=== PATIENT | male | born 1970 | race Caucasian/White ===

== ENCOUNTER 2023-12-23 10:29 | Observation (INO) ==
--- NOTE | 2023-12-04 15:51 | PAT Medication Instructions ---
Medication Instructions Date of Service December 04, 2023 Home Medications Medication Instructions Recorded Wheeled Walker #1 ea 11/19/23 walker #1 ea 11/23/23 losartan 25 mg tablet 25 mg PO QPM #90 tabs 12/04/23 aspirin 81 mg tablet,delayed release 81 mg PO QPM finasteride 5 mg tablet 5 mg PO QPM losartan 25 mg tablet 25 mg PO QPM meloxicam 7.5 mg tablet 7.5 mg PO QPM metoprolol succinate 25 mg tablet,extended release 24 hr (Toprol XL) 25 mg PO QPM nitroglycerin 0.4 mg sublingual tablet 0.4 mg sublingual Q5M PRN rosuvastatin 40 mg tablet 40 mg PO QPM sildenafil 50 mg tablet 25 mg PO PRN tamsulosin 0.4 mg capsule (Flomax) 0.4 mg PO QPM Continue as directed nitroglycerin 0.4 mg sublingual tablet 0.4 mg sublingual Q5M PRN(if needed) ASK your surgeon for instructions meloxicam 7.5 mg tablet 7.5 mg PO QPM ASK your prescriber and surgeon aspirin 81 mg tablet,delayed release 81 mg PO QPM DO NOT take the morning of surgery sildenafil 50 mg tablet 25 mg PO PRN Take evening before surgery finasteride 5 mg tablet 5 mg PO QPM losartan 25 mg tablet 25 mg PO QPM metoprolol succinate 25 mg tablet,extended release 24 hr (Toprol XL) 25 mg PO QPM rosuvastatin 40 mg tablet 40 mg PO QPM tamsulosin 0.4 mg capsule (Flomax) 0.4 mg PO QPM Other Notes NOTHING TO EAT OR DRINK AFTER MIDNIGHT. If you have any questions please call us at [phone] or [phone] or [phone] or [phone]
--- NOTE | 2023-12-11 11:37 | Anesthesiology Consultation ---
Date of Service December 11, 2023 Assessment & Plan (1) Encounter for pre-operative examination: - Infectious disease screening: Per assessment on 12/11/23- No known recent infectious disease contacts or current infectious disease symptoms. - Cardiology visit (09/01/23): "CAD s/p RCA STEMI and PCI: No further angina but has had atypical chest pain lasting only 5 to 10 seconds. Otherwise able to remain quite active without exertional symptoms. Ischemic evaluation not necessary at this time. Echo ordered. Has not been taking aspirin. Recommend aspirin 81 mg once daily, indefinitely. Rationale for this discussed with him. Well beta blocked. Optimize blood pressure control. High intensity statin therapy recommended.. Recommended against meloxicam given increased NH risk. He does not believe meloxicam offers him any benefit and will consider discontinuing.. Blood pressure has been elevated. Start losartan 25 mg once daily. Low-sodium diet. Monitor renal function and electrolytes.. LDL is severely elevated. Goal LDL <70. Reports elevated transaminase levels in the past on atorvastatin 80 mg and therefore has not been on statin therapy for years. Agreeable to start rosuvastatin 20 mg daily which can be further titrated if necessary. Transaminase levels in 1 month. Mediterranean type diet. Exercise as able.. Atypical chest pain: Completely different than prior angina per patient report and only occurred at rest for a few seconds despite working 8 hours on his feet throughout the day without exertional symptoms. Ischemic evaluation not necessary at this time. Has known residual severe D2 CAD. Continue medical management.. Disposition: Follow-up in 6 months or sooner for questions or concerns." > Echo done 09/2023. Denies CP/ESCOBEDO at subsequent PAT visit 12/11/23. - PCP visit (11/24/23): "his ekg was done and no changes.. his cxr was ordered.. he is not having any chest pain or sob. no lightheadedness or dizziness. he was to see cardiology and had his echo done. he was to see ortho and is having his right knee replacement on 12/22. he is going to pat for his lab work." - PCP addendum (12/16/23): "i reviewed pt's ekg which did not show any changes, his cxr was clear and his lab work was stable. he is clear for his surgery" Chart Review Chart Review: Acceptable Risk for Surgery and Patient seen in Pre Admission Testing Teaching & Discussion Pre-Anesthesia Teaching/Discussion Notes: Instructed NPO after midnight before surgery,except medications with 15 cc of water. Medication instructions provided according to the PAT guidelines. History Surgery Operation Date: 12/23/23 12:30 Proposed Procedures p Right Total Knee Arthroplasty - Cruz Crockett MD Height/Weight Height: 6 ft 1 in Weight: 100.1 kg Allergies Allergy/AdvReac Type Severity Reaction Status Date / Time No Known Drug Allergies Allergy Verified 12/04/23 09:33 Medications Home Medications Medication Instructions Recorded Confirmed Last Taken Wheeled Walker #1 ea 11/19/23 11/24/23 Unknown walker #1 ea 11/23/23 11/24/23 Unknown aspirin 81 mg tablet,delayed 81 mg PO QPM 12/04/23 12/04/23 Unknown release finasteride 5 mg tablet 5 mg PO QPM 12/04/23 12/04/23 Unknown losartan 25 mg tablet 25 mg PO QPM #90 tabs 12/04/23 Unknown meloxicam 7.5 mg tablet 7.5 mg PO QPM 12/04/23 12/04/23 Unknown metoprolol succinate 25 mg 25 mg PO QPM 12/04/23 12/04/23 Unknown tablet,extended release 24 hr (Toprol XL) nitroglycerin 0.4 mg sublingual 0.4 mg sublingual Q5M PRN Chest 12/04/23 12/04/23 Unknown tablet Pain rosuvastatin 40 mg tablet 40 mg PO QPM 12/04/23 12/04/23 Unknown sildenafil 50 mg tablet 25 mg PO PRN PRN Sexual Activity 12/04/23 12/04/23 Unknown tamsulosin 0.4 mg capsule (Flomax) 0.4 mg PO QPM 12/04/23 12/04/23 Unknown Past Medical History Medical History BPH w urinary obs/LUTS CAD (coronary artery disease) 2014- stent x1 HTN (hypertension) Hx of myocardial infarction 2014- stent x1 Follows [facility] [place] Cardio/Dr. Monique Hyperlipidemia Lumbar degenerative disc disease Osteoarthritis of knees, bilateral Exercise / Class Metabolic Activity II 4-5 Yardwork/Stairs/Walk up hill Past Family History Family History Mother Heart disease Myocardial infarction Grandfather (Maternal) Myocardial infarction Uncle Myocardial infarction (maternal) Denies family history of Prostate cancer Breast cancer Colorectal cancer Past Surgical History Surgical History H/O radiofrequency ablation (RFA) of nerve of lumbar spine History of appendectomy Hx of arthroscopy of right knee Hx of cardiac catheterization 2014 > stent x1 Hx of inguinal hernia repair Hx of umbilical hernia repair x2 Hx of wisdom tooth extraction PONV (postoperative nausea and vomiting) S/P coronary artery stent placement 2014 > stent x1 Past Anesthesia History No Hx of Anesthesia Complications and No Family Hx of Anesthesia Complications History of PONV No Hx of Motion Sickness and History of PONV Social History Smoking Status: Never smoker Do You Dip or Chew Tobacco: No Hx Alcohol Use: Yes Alcohol type: hard liquor alcohol intake frequency: holidays/special occasions only Hx Substance Use: No substance use type: does not use Review of Systems Patient denies chest pain, shortness of breath, dyspnea on exertion, fever, chills, cough, wheezing, palpitations. Physical Exam Vital Signs BP 126/82 P 75 TEMP 97.9 SP02 97%RA RESP 18 Physical Full cervical extension range of motion. Full TMJ range of motion. TMD 2.5 finger breaths (small chin) Mallampati Score II Dentition: intact Lungs: clear throughout to auscultation Cardiac: regular rate and rhythm, no murmurs noted Spine: normal Carotid arteries: negative bruit Extremities: no LE edema Lab Results Anesthesia Preop Results Results Anesthesia Widget: WBC 5.75 K/ul (4.8-10.8) 12/11/23 Hgb 14.9 g/dl (14.0-18.0) 12/11/23 Hct 44.6 % (42.0-52.0) 12/11/23 Plt 230 K/uL (130-400) 12/11/23 Na 142 mmol/L (136-145) 12/11/23 K 3.9 mmol/L (3.5-5.1) 12/11/23 Cl 108 mmol/L (98-107) H 12/11/23 CO2 26 mmol/L (21-32) 12/11/23 BUN 22 mg/dl (6-23) 12/11/23 Creat 1.00 mg/dl (0.6-1.4) 12/11/23 Glucose Level 121 mg/dl (70-99(Fasting)) H 12/11/23 PT 10.5 Seconds (9.0-12.0) 12/11/23 PTT 26 Seconds (21-31) 12/11/23 INR 1.0 (0.9-1.1) 12/11/23 Blood Type A Positive 12/11/23 Antibody Screen NEGATIVE 12/11/23 Testing Electrocardiogram Date: 11/24/23 SR at 71bpm. Probable inferior NH, of indeterminate age. "No change" per confirming provider ECG review. Echo done 09/25/23. Chest X-Ray Date: 12/11/23 FINDINGS: Lung volumes are normal. There is no consolidation. 5 mm round density within the right midlung represents a calcified nodule which is benign. There is no pneumothorax or pleural effusion. Cardiac size is normal. Mediastinal contours are normal. There is no evidence for pulmonary edema. IMPRESSION: No acute cardiopulmonary findings. Echocardiogram Date: 09/25/23 EF 55-60%. Mild inferolateral wall HK. Moderate cLVH. Mild MR. RVSP 22mmhg. No significant diastolic dysfunction. Stress Test Date: 04/21/19 Type: nuclear Exercise stress nuclear cardiac stress test negative for ischemia. 96% MPHR. Small area of mild intensity tracer uptake of the bassal inferior wall suggestive of prior infarct. There is attenuation artifact on rest imagines. LVEF 55%.
--- NOTE | 2023-12-18 07:36 | History & Physical Report ---
Date of Service December 18, 2023 Assessment & Plan (1) Bilateral primary osteoarthritis of knee: 53-year-old gentleman with underlying cardiac disease status post a stent placement with advanced bilateral knee DJD. Right knee is bothering more than the left. He is failed conservative treatment. He like to proceed with right knee replacement. Plan: We are going to proceed with right total knee replacement. The risk and benefit of this procedure explained to the patient he understands. At his young age this may need to be revised in the future. He has been seen by cardiology and cleared for surgery. Will plan on using aspirin for DVT prophylaxis. He is hoping to be discharged to home with some home health postop. (2) CAD (coronary artery disease): (3) Hyperlipidemia: (4) HTN (hypertension): History of Present Illness Chief Complaint: . Bilateral knee pain and discomfort right side greater than the left. Primary Care Provider: Wale Beltrán DO . 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 He has a long history of bilateral knee pain discomfort is gradually gotten worse over time. He was initially treated at [facility] with multiple injections which would become less successful over time. For some reason they would never operate on his knees. He then presented to Dr. Paniagua who referred him here for definitive treatment. Both knees bother him but the right knee hurts more than the left. He takes medicine with minimal relief. He would like to proceed with knee replacement. Allergies Allergy/AdvReac Type Severity Reaction Status Date / Time No Known Drug Allergies Allergy Verified 12/04/23 09:33 Home Medications Medication Instructions Recorded Confirmed Type Wheeled Walker #1 ea 11/19/23 11/24/23 Rx walker #1 ea 11/23/23 11/24/23 Rx aspirin 81 mg tablet,delayed 81 mg PO QPM 12/04/23 12/04/23 History release finasteride 5 mg tablet 5 mg PO QPM 12/04/23 12/04/23 History losartan 25 mg tablet 25 mg PO QPM #90 tabs 12/04/23 Rx meloxicam 7.5 mg tablet 7.5 mg PO QPM 12/04/23 12/04/23 History metoprolol succinate 25 mg 25 mg PO QPM 12/04/23 12/04/23 History tablet,extended release 24 hr (Toprol XL) nitroglycerin 0.4 mg sublingual 0.4 mg sublingual Q5M PRN Chest 12/04/23 12/04/23 History tablet Pain rosuvastatin 40 mg tablet 40 mg PO QPM 12/04/23 12/04/23 History sildenafil 50 mg tablet 25 mg PO PRN PRN Sexual Activity 12/04/23 12/04/23 History tamsulosin 0.4 mg capsule (Flomax) 0.4 mg PO QPM 12/04/23 12/04/23 History Past Med/Surg History Problem List (Updated 12/18/23 @ 07:34 by Cruz Crockett MD) Bilateral primary osteoarthritis of knee Encounter for pre-operative examination Effusion, right knee Erectile dysfunction (Chronic) Elevated PSA (Acute) Claudication of both lower extremities Lumbar degenerative disc disease Medical History Lumbar degenerative disc disease HTN (hypertension) Hyperlipidemia Hx of myocardial infarction 2015- stent x1 [place] [facility] [place]. Monique CAD (coronary artery disease) 2015- stent x1 BPH w urinary obs/LUTS Osteoarthritis of knees, bilateral Surgical History PONV (postoperative nausea and vomiting) Hx of cardiac catheterization 2014 > stent x1 Hx of wisdom tooth extraction Hx of inguinal hernia repair Hx of umbilical hernia repair x2 S/P coronary artery stent placement 2015 > stent x1 H/O radiofrequency ablation (RFA) of nerve of lumbar spine Hx of arthroscopy of right knee History of appendectomy Family History Mother Heart disease Myocardial infarction Grandfather (Maternal) Myocardial infarction Uncle Myocardial infarction (maternal) Denies family history of Prostate cancer Breast cancer Colorectal cancer Social History Smoking Status: Never smoker Age Started Using Tobacco: 18; Second Hand Exposure: No; Do You Dip or Chew Tobacco: No; Hx Alcohol Use: Yes Alcohol type: hard liquor Hx Substance Use: No Preferred Language: Vietnamese Communication Ability: Effective Globe Cleaner Required: No Beliefs That Will Affect Care: None marital status: Current Living Situation: Spouse current occupational status: employed current occupation: [employer] Feels Safe at Home: Yes Childhood Exposure to Second-Hand Smoke: No caffeine: Yes (coffee, soda, tea) Dental Care, Regularly: No Physical Activity Frequency: Does not Exercise Seatbelt Use: always Sunscreen Use: No Assistive Devices: Glasses Review of Systems All systems reviewed & are unremarkable except as noted in HPI & below. Physical Exam . Physical examination reveals a pleasant relatively healthy looking middle-aged male. Examination of both [id number] patient ambulates independently. He is got varus alignment of both knees. Examination of the right knee reveals varus alignment. Small to moderate-sized knee effusion. Range of motion 5-1 20. No instability. No pain with hip motion. Examination left knee reveals slight varus alignment. Small knee effusion. Range of motion 5-1 25. No instability. Constitutional WD/WN, vitals as above Respiratory normal respiratory effort, lungs clear to auscultation Cardiovascular RRR, no murmur, no edema Gastrointestinal (Abdomen) normal bowel sounds, soft, nontender, no hepatosplenomegaly Results & Data Results & Data Laboratory Results . Diagnostic Findings . X-rays of the right knee reviewed. Shows advanced right knee DJD. Is got complete loss of his medial joint space. Got subchondral sclerosis. He is got similar but less severe disease on the left knee. PG Care Time/CCT Total # of Minutes Spent Total Time Spent with Patient: Total time spent is greater than 50% in coordination of care (as documented) at patient's floor/unit and/or counseling patient: Coding Level of Care Code None Diagnoses Bilateral primary osteoarthritis of knee M17.0 CAD (coronary artery disease) I25.10 Hyperlipidemia E78.5 HTN (hypertension) I10
[~2023-12-23 10:29] MED LIST: BUPIVACAINE 0.5 % 5 MG/1 ML PF 10ML VIAL ONE; ROPIVACAINE 0.5% 5 MG/ML 30 ML VIAL ONE
--- NOTE | 2023-12-23 10:42 | History & Physical Bridge Note ---
Date of Service December 23, 2023 History & Physical Bridge Note I have examined the patient, reviewed the History & Physical and in the interval since the performance of the History & Physical I have noted the following changes of clinical significance: no changes noted
[2023-12-23] MEDS ORDERED: ATROPINE SULFATE 0.1 MG/ML 10ML SYR IV PRN (11:11)
[2023-12-23] MEDS ORDERED: HYDROmorphone INJ 1 MG/ML SYRINGE IV PRN (11:11)
[2023-12-23] MEDS ORDERED: fentaNYL citrate PF 100 MCG/2 ML VIAL IV PRN (11:11)
[2023-12-23] MEDS ORDERED: ePHEDrine sulfate 50 MG/ML AMP IV PRN (11:11)
[2023-12-23] MEDS ORDERED: ONDANSETRON INJ 2 MG/ML 2 ML VIAL IV PRN ×2 (11:11→15:41)
[2023-12-23] MEDS: ACETAMINOPHEN 500 MG TAB PO SCH ×2 (11:19→20:21)
[2023-12-23] MEDS: dexAMETHasone**PF** 10 MG/ML VIAL IV SCH (11:19)
[2023-12-23] MEDS: FAMOTIDINE 20 MG TAB PO SCH (11:20)
[2023-12-23] MEDS: CeleBREX 200 MG CAP PO SCH (11:20)
[2023-12-23] MEDS: LR 500ML BOLUS, THEN 15ML/HR IV SCH (11:21)
[2023-12-23] MEDS: LR 60ML/HR IV SCH (11:21)
[2023-12-23] MEDS: METOCLOPRAMIDE HCL 10 MG TABLET PO SCH (11:21)
[2023-12-23] MEDS ORDERED: PROPOFOL IV EMULSION 10 MG/ML 20 ML VIAL IV ONE (11:39)
[2023-12-23] MEDS ORDERED: MIDAZOLAM HCL 1 MG/ML 2ML VIAL ONE (11:39)
[2023-12-23] MEDS: ceFAZolin 2000MG 2,000 MG/15 ML SYR IV SCH ×2 (13:06→20:25)
[2023-12-23] MEDS: ROPIV 0.5% 246mg, Ketorolac 30mg, EPINEPHrine 0.5mg in NSS INFIL SCH (13:40)
[2023-12-23] MEDS: ORTHO JOINT ANESTHETIC ONE (13:40)
[2023-12-23] MEDS: TRANEXAMIC ACID 1,000 MG **IV Intra-op IV SCH (14:01)
--- NOTE | 2023-12-23 14:56 | Operative Report ---
PG Post Operative Report Pre & Post Diagnosis Operation Date: 12/23/23 12:30 Pre-Op Diagnosis: Right Knee Osteoarthritis Post-Op Diagnosis: Right Knee Osteoarthritis I identified the patient and participated in the time-out.: Yes Procedure Operation Date: 12/23/23 12:30 Actual Procedures p Right Total Knee Arthroplasty(Right) - Cruz Crockett MD Surgeon Cruz Crockett MD Commutator Inspector Chaparro Hi PA-C Estimated Blood Loss 50 Findings Consistent with Post-Op Diagnosis Operative findings reveal advanced right knee medial compartment DJD. Extensive grade 4 flhy-ly-mazd disease and eburnation of the medial femoral condyle medial tibial plateau. He had some more focal changes laterally. The trochlea and patella looked pretty well-preserved. Moderate-sized joint effusion. Specimens Right knee sent for pathology. Anesthesia Type Spinal MAC Complications none Disposition Accompanied Patient To Recovery: No Indications Patient is a 53-year-old gentleman whose had a long history of bilateral knee pain and discomfort described to gotten worse over time. Is been through extensive conservative treatments became less successful. The right knee was bothering more than the left. He elected proceed with right total knee replacement. Description of Procedure Operative implants consist of: 1. Biomet Vanguard size 67.5 right posterior stabilized femoral component. 2. Biomet size 79 tibial tray. 3. 12 mm posterior stabilized polyethylene insert. 4. 34 x 8 and half all poly patella. The patient was taken the operating, identified, placed on the operative table in supine position. All contact areas were appropriately padded. IV antibiotics tried by anesthesia team. A right thigh turn was then placed. The right lower extremity was then prepped and draped in usual sterile fashion. The right leg was elevated and exsanguinated with use of an Esmarch and a turn was placed at 300 mmHg. An anterior approach to the right knee was then perfo rmed to longitudinal incision centered over the patella. Sharp dissection was got through subcutaneous tissue down the extensor mechanism. A medial parapatellar arthrotomy incision was made. Some subperiosteal dissection was carried out medially. The fat pad was resected from Neath patella tendon. The lateral patellofemoral ligament was released. Patella subluxated laterally and the knee was flexed. The osteophytes were taken off distal femur. ACL PCL were then released from distal femur the tibia subluxated anteriorly. The external tibial alignment jig was then placed on the interface the tibia and adjusted 14 mm medially. Proximal tibial cut was made remove out of millimeter bone from the medial side. The tibia was sized to a size 79. Attention drawn the femur. The distal femur send with a sharp drill. The intramedullary canal was suction. A right 6 degree valgus cutting guide was placed. The distal femoral cutting block was pinned in place. Distal femoral cut was made take an additional 3 mm of bone off distal femur. The femur was then sized to a size 67.5. The AP cutting block was pinned parallel to the epicondylar axis which was 4 degrees of external rotation. The anterior cut, anterior chamfer, posterior cut, posterior chamfer cuts were made. The box cutting guide was placed and just slight lateral and the box cut was made. The knee was flexed. The remnants of medial and lateral menisci were excised. The osteophytes were taken off the posterior aspect the femur. A trial femoral component was placed. The tibial tray was pinned Martita external rotation and the drill and stem punch used to create defect in proximal tibia for the tibial tray. The knee was then trialed and the 12 mm insert fit most appropriately. Attention drawn the patella. The patella was cleaned of all soft tissues. Patella thickness measured 23 mm in thickness was cut down to 14. The patella was sized to a size 34. The lug holes were drilled for the 34 patella. The lateral osteophyte was removed. Patella button was placed. Knee was taken through range of motion patella tracked nicely with no thumbs test. Attention was then drawn toward placing the permanent components. All trial components were removed. A bone plug was placed in distal femur limit blood loss. Double batch Palacos G cement was mixed. A Biomet Vanguard size 67.5 right posterior stabilized femoral component, size 79 tibial tray, a 12 mm posterior stabilized polyethylene insert, and a 34 x 8 and half all poly patella then cemented in place. The knee was brought out into full extension till cement hardened. Final cement check was then performed. The pericapsular tissues were injected with a total of 100 cc of Ortho mix. The patient did receive 1 g tranexamic acid. The tourniquet was then let down for final tourniquet time 56 minutes. Hemostasis surges electrocautery. Extensor Meclomen closed with combination 1 PDS suture #1 Vicryl suture in a [id number] fashion. Extensor Meclomen checked found to be intact. The subcutaneous tissue then closed with 2 Dexon suture in buried interrupted fashion skin was closed skin sanford. Leg was then cleaned and dried and sterile dressed with Xeroform, 4 fours, sterile cast padding, Gucci bandage were applied. Patient then transferred to the recovery room in stable condition. Patient tolerated the procedure well and there were no complications. Chaparro Hi, my physician chef assistant, was present for the entire procedure. His assistance was essential and required for appropriate patient positioning, prepping and draping, surgical exposure, performing the technical details of the operation, placement the implants, closure of the wound, and placement of the sterile bandage. I attest to the content of the Intraoperative Record and any orders documented therein. Any exceptions are noted below.
--- NOTE | 2023-12-23 15:10 | Anesthesiology Progress Note ---
Date of Service December 23, 2023 Anesthesia Post Procedure Vital Signs Vital Signs: Temp Pulse Resp BP Pulse Ox O2 Del Method 12/23/23 15:05 36.1 C L 69 16 130/72 96 Room Air 12/23/23 14:55 79 17 125/78 100 Room Air 12/23/23 14:48 36.0 C L 80 17 125/76 97 Room Air 12/23/23 10:56 36.6 C 57 L 20 155/85 H 98 Room Air Pain Intensity Right Knee: Pain Intensity: 6 Transfer of Care Handoff Completed per policy Notes Mental Status: alert / awake / arousable and participated in evaluation Nausea / Vomiting: adequately controlled Pain: adequately controlled Airway Patency, RR, SpO2: stable & adequate BP & HR: stable & adequate Hydration State: stable & adequate Neuraxial Anesthesia: was administered Anesthetic Complications: no major complications apparent and Pt Satisfied with anesthetic care
--- NOTE | 2023-12-23 15:18 | XRay Report ---
XR knee RT 1 or 2V routine CLINICAL HISTORY: Surgical Post Op COMPARISON: Right knee radiographs November 19, 2023. FINDINGS: Alignment of the total right knee arthroplasty is anatomic. There is no periprosthetic fra cture or unexpected radiopaque foreign body. There are skin sanford. IMPRESSION: Expected findings following total right knee arthroplasty. ACT 112: Negative or not required by law. Electronically signed by: Foreign Harris M.D. 12/23/2023 3:17 PM
[2023-12-23] MEDS ORDERED: NON-FORMULARY MEDICATION (Sildenafil 50 mg tablet) PO PRN (15:41)
[2023-12-23] MEDS ORDERED: MAGNESIUM HYDROXIDE SUSP 30 ML UDC PO PRN (15:41)
[2023-12-23] MEDS ORDERED: METOCLOPRAMIDE HCL INJ 5 MG/ML 2 ML VIAL IV PRN (15:41)
[2023-12-23] MEDS ORDERED: NALOXONE HCL 0.4 MG/1 ML VIAL/CARP IV PRN (15:41)
[2023-12-23] MEDS ORDERED: NITROGLYCERIN SL 0.4 MG/TAB TAB SL PRN (15:41)
[2023-12-23] MEDS ORDERED: diphenhydrAMINE Capsule 25 MG CAP PO PRN (15:41)
[2023-12-23] MEDS ORDERED: ALUMINUM/MAGNESIUM SUSP 30 ML UDC PO PRN (15:41)
[2023-12-23] MEDS ORDERED: HYDROmorphone INJ 0.5 MG/0.5 ML SYR IV PRN (15:41)
[2023-12-23] MEDS ORDERED: bisacodyL 10 MG SUPP PR PRN (15:41)
[2023-12-23] MEDS: KETOROLAC 30 MG/ML VIAL IV SCH (16:30)
[2023-12-23] MEDS: ASCORBIC ACID 500 MG TAB PO SCH (16:30)
[2023-12-23] MEDS: ASPIRIN 81 MG ECTAB PO SCH (20:21)
[2023-12-23] MEDS: ROSUVASTATIN CALCIUM 20 MG TAB PO SCH (20:22)
[2023-12-23] MEDS: METOPROLOL SUCC 25MG EXT REL TAB PO SCH (20:22)
[2023-12-23] MEDS: FINASTERIDE 5 MG TAB PO SCH (20:22)
[2023-12-23] MEDS: DOCUSATE SODIUM 100 MG CAP PO SCH (20:22)
[2023-12-23] MEDS: LOSARTAN POTASSIUM 25 MG TAB PO SCH (20:22)
[2023-12-23] MEDS: SENNA 8.6 MG TAB PO SCH ×2 (20:23)
[2023-12-23] MEDS: TAMSULOSIN HCL 0.4 MG CAP PO SCH (20:23)
[2023-12-23] MEDS: TRANEXAMIC ACID / 0.7% NACL 1,000 MG/100 ML BAG IV SCH (20:26)
[2023-12-24 06:43] LABS: Hematocrit (blood only) 38.4 % (42.0-52.0); Hemoglobin 12.9 g/dl (14.0-18.0); Mean Corpuscular Hemoglobin 29.4 pg (25.0-34.0); Mean Corpuscular Hgb Conc 33.6 g/dL (32.0-36.0); Mean Corpuscular Volume 87.5 fL (80.0-100.0); Mean Platelet Volume 9.1 fL (9.4-12.4); Platelet Count 207 K/uL (130-400); RDW Coefficient of Variation 12.4 % (11.5-14.5); Red Blood Count 4.39 M/uL (4.70-6.10); White Blood Count 12.76 K/ul (4.8-10.8)
[2023-12-24 07:05] LABS: BUN Creatinine Ratio 21.6 (10-20); Calcium 8.7 mg/dl (8.6-10.3); Creatinine Clr Calc Pharmacy 108.5 ml/min; Potassium 4.2 mmol/L (3.5-5.1)
--- NOTE | 2023-12-24 07:08 | Orthopedic Progress Note ---
Date of Service December 24, 2023 Assessment & Plan (1) Status post right knee replacement: Plan: 53-year-old gentleman postop day 1 from right knee replacement doing pretty well. His pain is controlled. He is neurologically intact. Plan: 1. DVT prophylaxis including Thiede teds, SCDs, aspirin twice a day. 2. PT/OT. Weight-bear as tolerated. Right total knee protocol. 3. Pain control. Doing okay with current pain regimen. 4. Disposition. Plan is to discharge to home with some home health if he does okay in therapy today. Admission and Anticipated Discharge Date Admission Date: December 23, 2023 Subjective 53-year-old gentleman postop day 1 from right knee replacement. He is doing pretty well this morning. Had a pretty good night. Pains controlled. No chest pain or shortness of breath. Hoping to go home today. Physical Exam Physical Exam: Physical exam shows a pleasant middle-age male. Is lying bed looks pretty comfortable. Examination of the right leg reveals the leg to be well aligned. Dressings clean dry and intact. He can dorsiflex and plantarflex his foot appropriately. He is neurologically intact. Respiratory: normal respiratory effort, lungs clear to auscultation Cardiovascular: RRR, no murmur, no edema Gastrointestinal (Abdomen): normal bowel sounds, soft, nontender, no hepatosplenomegaly Results & Data Vital Signs (Past 12 Hours) Vital Signs Temp Pulse Resp BP Pulse Ox O2 Del Method 12/24/23 04:05 36.8 C 68 14 121/62 97 Room Air 12/23/23 23:20 36.9 C 70 14 125/68 95 Room Air 12/23/23 20:25 Room Air 12/23/23 19:40 36.8 C 96 H 14 157/81 H 96 Room Air Laboratory Results Hemoglobin is 12.9. Hematocrit is 38.4. Electrolytes are stable.
[2023-12-24 07:57] VITALS: BP 132/79; PULSE 61; RESP 16; TEMP 97.7; O2SAT 100
[2023-12-24] MEDS: oxyCODONE HCL IR 5 MG TAB (IMMEDIATE RELEASE) PO PRN (08:21)
[2023-12-24] MEDS: dexAMETHasone 10 MG in SYRINGE 0 ML IV SCH (08:22)
[2023-12-24] MEDS: MULTIVITAMIN TAB PO SCH (08:22)
--- NOTE | 2023-12-26 06:51 | Discharge Summary ---
Date of Service December 26, 2023 Admission HPI (Per Admitting) . 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 He has a long history of bilateral knee pain discomfort is gradually gotten worse over time. He was initially treated at [facility] with multiple injections which would become less successful over time. For some reason they would never operate on his knees. He then presented to Dr. Paniagua who referred him here for definitive treatment. Both knees bother him but the right knee hurts more than the left. He takes medicine with minimal relief. He would like to proceed with knee replacement. Admission Exam (Per Admitting) . Physical examination reveals a pleasant relatively healthy looking middle-aged male. Examination of both litna-heem-ekw patient ambulates independently. He is got varus alignment of both knees. Examination of the right knee reveals varus alignment. Small to moderate-sized knee effusion. Range of motion 5-1 20. No instability. No pain with hip motion. Examination left knee reveals slight varus alignment. Small knee effusion. Range of motion 5-1 25. No instability. Principal Diagnosis Same as "Discharge Diagnosis" noted below under Discharge Instructions. Discharge Data Procedures Performed Operation Date: 12/23/23 12:30 Actual Procedures p Right Total Knee Arthroplasty(Right) - Cruz Crockett MD Ordered Studies 12/23/23 05:00 US - OR guided needle placemen Routine Hospital Course (1) Status post right knee replacement: This is a 53 year old patient admitted on 12/23/23 and underwent total knee arthroplasty. He tolerated the procedure well and there were no complications. Transferred to the PACU post op and later to the orthopedic floor for further care. He was given ancef for antibiotic prophylaxis. He was also given SIGIFREDO stockings, SCDs, and aspirin for DVT prophylaxis. Hemoglobin, hematocrit, and vital signs were monitored during his hospital stay and remained stable. Did not require any blood transfusions. There were no complications during his hospital stay. By post op day #1 the patient was tolerating a regular diet, pain was reasonably controlled with oral pain medicine, and he was participating in physical therapy. On post op day #1 the patient was discharged home and set up with home health care. He was given printed discharge instructions including prescriptions for extra strength tylenol, aspirin, cefadroxil, ketorolac, zofran, oxycodone, senokot, and flomax. Continue physical therapy, weight bearing as tolerated. Continue SIGIFREDO stockings. Follow up approximately 2 weeks post op or sooner if there are problems or concerns. Discharge Plan Discharge Items Patient Disposition: Home - Home Health Services Reason For Visit: Right Knee Osteoarthritis Discharge Diagnosis: Right Knee Replacement Activity: Per Instructions section Weightbearing: Full weightbearing Non-emergency contact: Surgeon Call non-emergency contact if: you have any medication questions Follow-up/Referrals: Wale Beltrán DO [Primary Care Provider] - Diet: Regular Addtl Attending Provider Instructions: ACTIVITY RECOMMENDATIONS: Diet: * You may resume previous diet. Physical Therapy: * You will go to physical therapy three times each week for four to six weeks after your surgery in order to regain your knee range of motion and to retrain your knee to work properly. * It is just as important to make sure you are getting your knee perfectly straight as it is to regain your knee bend. * Taking a pain pill an hour before therapy can help you have a more productive and comfortable therapy session. Home Exercise: * You were shown a series of exercises (heel props, heel slides, etc.) in the hospital. Do these exercises three to four times each day including the exercises you were shown in physical therapy. Walking: * Get up and walk several times each day. For the first four weeks, try not to stand or walk for more than one hour at a time. If you do stand or walk for more than one hour, you will not hurt anything, but your knee and leg will likely swell. * As you feel comfortable, you may change from the walker or crutches to a cane and then to independent walking. MEDICATIONS: New Medicine: * You will likely be taking one or more of these medications: 1. Oxycodone - A quick and shorter-acting pain medication. Take one to two tablets every six hours to lessen your pain. 2. Aspirin - Thins your blood to lessen the chance of forming a blood clot. * The most common side effects of pain medicine and iron are nausea and constipation. If nausea or constipation is too much of a problem or if you have any questions about your new medicines or doses, call [facility] at . We will try to help you manage these issues. "VERY IMPORTANT TO READ AND REVIEW" Pain: * The immediate post-operative period after knee replacement surgery is often quite painful. * You are given a prescription for pain medicine. You should take it, as directed, when you need it, especially before physical therapy and before going to bed. Pain that interferes with sleep is very common and can last several months. * You will likely need pain medicine for the first four to six weeks. It will not stop all of the pain. The pain will lessen and as you feel better, you may change to milder pain medicine such as Tylenol. * The most common side effects of pain medicine are nausea and constipation, so don't take more than you need. SPECIAL CARE INSTRUCTIONS: TEDs/Elastic Stockings: * The white elastic stockings help limit swelling and prevent blood clots from forming in your legs. The more you wear them, the more they work. * Wear them for six weeks after knee replacement surgery and four weeks after partial knee replacement. Incision Site Care: * Remove dressing postoperative day 2 and then shower. Keep direct shower pressure off the incision site. * After showering, cover otoniel with dry gauze and change daily or more frequently if the dressing is getting saturated with drainage. * Use the SIGIFREDO stockings to hold dressing in place. DO NOT apply tape on the skin. * May completely stop using bandage if wound is dry and no drainage * Otoniel are removed between 2 and 3 weeks post-op. If your follow-up appointment is made before 2 weeks, please have your appointment re- scheduled. It is too early to remove the otoniel. Prevention of Infection: * Take antibiotics one hour before any dental cleaning, dental work, urological procedure, gastrointestinal procedure or any invasive surgery in order to prevent your new joint from getting infected. * You may get the antibiotics from the doctor performing the procedure or you may call our office at [phone] before and we will call in a prescription to the pharmacy of your choice. Things to Watch For: * Drainage from the incision site that occurs more than one week after your surgery. * Severely increased knee/leg pain or swelling. * Increased redness at the incision site. * Fever above 102 degrees Fahrenheit. * Unusual chest pain or shortness of breath. * Unusual pain or burning with urination. Call [facility] at [phone] with any of the above problems or if you have any questions about your medicines or recovery. FOLLOW UP VISIT: Make an appointment to see your doctor for approximately two weeks after surgery for a progress check and staple removal by calling the office at [phone]. Pending Studies at Discharge: No Stand-Alone Forms: [facility], Smoking Cessation Medications and DC Order Prescriptions: Continued (JEANETTE) dianne [facility] See Rx Instructions .MEDSUPPLY Qty: 1 0RF Rx Instructions: As directed losartan 25 mg tablet 25 mg PO QPM Qty: 90 3RF sennosides [Senokot] 8.6 mg tablet 8.6 mg PO BID 14 Days Qty: 28 0RF Patient Comments: post op Rx Instructions: Take two times a day to prevent/treat constipation aspirin [Ricco Low Dose Aspirin] 81 mg tablet,delayed release (DR/EC) 81 mg PO BID 45 Days Qty: 90 0RF Patient Comments: post op Rx Instructions: Take to prevent blood clots. acetaminophen [Tylenol Extra Strength] 500 mg tablet 1,000 mg PO TID 30 Days Qty: 180 0RF Patient Comments: post op Rx Instructions: Take 3 times per day to lessen pain. ketorolac 10 mg tablet 10 mg PO Q6 5 Days Qty: 20 0RF Patient Comments: post op Rx Instructions: Take 4 times per day with food for 5 days to lessen pain and swelling. ondansetron 4 mg tablet,disintegrating 4 mg PO Q8 PRN (Reason: nausea) Qty: 20 1RF Patient Comments: post op Rx Instructions: Take as needed for nausea oxycodone 5 mg tablet 5 - 10 mg PO Q6 PRN (Reason: pain) Qty: 40 0RF Patient Comments: post op Rx Instructions: Take as needed for pain cefadroxil 500 mg capsule 500 mg PO BID 7 Days Qty: 14 0RF Patient Comments: post op Rx Instructions: Take 1 cap twice a day to prevent infection (DME) Neida Villarreal [facility] See Rx Instructions .MEDSUPPLY Qty: 1 0RF Rx Instructions: As directed sildenafil 50 mg tablet 25 mg PO PRN PRN (Reason: Sexual Activity) Rx Instructions: Take one tablet one hour prior to sexual activity. Best taken on an empty stomach max dosage 100 mg tamsulosin [Flomax] 0.4 mg capsule 0.4 mg PO QPM nitroglycerin 0.4 mg tablet, sublingual 0.4 mg sublingual Q5M PRN (Reason: Chest Pain) Rx Instructions: do not exceed 3 doses per episode metoprolol succinate [Toprol XL] 25 mg tablet extended release 24 hr 25 mg PO QPM finasteride 5 mg tablet 5 mg PO QPM rosuvastatin 40 mg tablet 40 mg PO QPM Discontinued aspirin 81 mg tablet,delayed release (DR/EC) 81 mg PO QPM meloxicam 7.5 mg tablet 7.5 mg PO QPM Admission Data Admit Date/Time: 12/23/23 14:49 Attending Provider: Cruz Crockett Admit Provider: Cruz Crockett Primary Care Provider: Wale Beltrán Other Interventions: Discharge Summary Assessment (RN) Last Done: 12/24/23 09:19
== END 2023-12-24 11:00 | disposition home health service (06) ==
LOC: ASU 10:29 → 3E 10:29